=== PATIENT | female | born 1980 | race Caucasian/White ===

== ENCOUNTER 2021-03-28 09:28 | Outpatient (CLI) | payer OTHER ==
[~2021-03-28 09:28] MED LIST: barium sulfate 450ml oral suspension ONE
== END 2021-03-28 23:59 | disposition home or self-care (01) ==
LOC: RAD 09:28
PROVIDERS: ATTEND Family Medicine
DX: R13.10 Dysphagia, unspecified (principal)
CPT/HCPCS: 74220

== ENCOUNTER 2021-08-01 07:30 | Day surgery (SDC) | payer OTHER ==
[~2021-08-01] VITALS: Ht 172.7 cm; Wt 159.1 kg
[2021-08-01 07:45] VITALS: BP 154/79
[2021-08-01] MEDS ORDERED: fentaNYL/PF 50MCG/1 ML 2ML syringe ONE ×3 (07:46→09:35)
[2021-08-01] MEDS ORDERED: MIDAZolam 1 MG/ML 5ML VIAL ONE ×2 (07:46→09:29)
[2021-08-01] MEDS ORDERED: LIDOcaine Viscous 15ml cup ONE (07:46)
[2021-08-01] MEDS ORDERED: CETI-90 PO (08:01)
[2021-08-01] MEDS ORDERED: MULT-1219 PO (08:01)
[2021-08-01] MEDS ORDERED: OMEP20CA15 PO (08:01)
[2021-08-01] MEDS ORDERED: OMEG-79 PO (08:02)
[2021-08-01] MEDS ORDERED: ATOR40TA PO (08:02)
[2021-08-01] MEDS ORDERED: CHOL500049 PO (08:04)
[2021-08-01] MEDS ORDERED: LOP12.5T PO (08:06)
[2021-08-01] MEDS ORDERED: METO25TA6 PO (08:06)
[2021-08-01 09:56] VITALS: BP 139/77
[2021-08-01 10:06] VITALS: BP 138/81
[2021-08-01 10:16] VITALS: BP 130/81
[2021-08-01 10:26] VITALS: BP 132/78
== END 2021-08-01 10:40 | disposition home or self-care (01) ==
LOC: GI LAB 07:30
PROVIDERS: ATTEND Internal Medicine Gastroenterology
DX: K92.1 Melena (principal); K21.00 Gastro-esophageal reflux disease with esophagitis, without bleeding; K29.50 Unspecified chronic gastritis without bleeding; K64.4 Residual hemorrhoidal skin tags; K64.1 Second degree hemorrhoids; K64.0 First degree hemorrhoids
CPT/HCPCS: 43239; 45378; 99152; 99153; J2250; J3010; J7040; Z7512; A4620

== ENCOUNTER → 2022-10-15 | Day surgery (SDC) | payer OTHER ==
[2022-10-11 12:07] LABS: BASOPHILS % (AUTO) 0.3 % (0-1); EOSINOPHILS # (AUTO) 0.3 X10'3 (0-0.9); EOSINOPHILS % (AUTO) 3.7 % (0-6); LYMPHOCYTES % (AUTO) 23.6 % (21-51); MEAN CORPUSCULAR HEMOGLOBIN 29.3 PG (27.0-31.0); MEAN CORPUSCULAR HGB CONC 33.7 g/dL (33.0-36.5); MEAN CORPUSCULAR VOLUME 87.1 FL (78-98); MEAN PLATELET VOLUME 8.1 FL (7.4-10.4); MONOCYTES # (AUTO) 0.5 X10'3 (0-0.9); MONOCYTES % (AUTO) 5.6 % (2-12); NEUTROPHILS # (AUTO) 5.7 X10'3 (1.8-7.7); NEUTROPHILS % (AUTO) 66.8 % (42-75); PRE OP HEMATOCRIT 39.9 % (35.0-45.0); PRE OP HEMOGLOBIN 13.4 g/dL (12.0-16.0); PRE OP PLATELET COUNT 222 X10'3 (140-440); RED BLOOD COUNT 4.58 X10'6 (4.20-5.60); RED CELL DISTRIBUTION WIDTH 14.3 % (11.5-14.5)
[2022-10-11 12:27] LABS: ALBUMIN 3.7 G/DL (3.4-5.0); ALKALINE PHOSPHATASE 100 IU/L (46-116); BLOOD UREA NITROGEN 13 MG/DL (7-18); BUN/CREATININE RATIO 19.1 (6.6-38.0); CALCIUM 8.6 MG/DL (8.5-10.1); CHLORIDE 108 MMOL/L (99-107); CREATININE 0.68 MG/DL (0.40-0.90); PRE OP ALT 31 U/L (30-65); PRE OP ANION GAP 5 (8-16); PRE OP AST 24 U/L (10-37); PRE OP BILIRUB, TOTAL 0.6 MG/DL (0.0-1.0); PRE OP GLUCOSE 115 MG/DL (70-104); PRE OP POTASSIUM 3.4 MMOL/L (3.4-5.1); PRE OP SODIUM 141 MMOL/L (135-145); TOTAL CARBON DIOXIDE 28.1 MMOL/L (24-32); TOTAL PROTEIN 7.5 G/DL (6.4-8.2); eGFR > 90 ML/MIN
[~2022-10-15] VITALS: Ht 172.7 cm; Wt 158.8 kg
[2022-10-15] VITALS (7 sets, daily range): BP systolic 114–153; BP diastolic 63–89
[~2022-10-15] MED LIST changes: +ATOR40TA PO; +BUPIVAcaine/PF 2.5 mg/ml (0.25%) 30ml vial ONE; +CETI-90 PO; +LIDOcaine 0.5% (5mg/ml) 50ml vial ONE; +LIDOcaine 1%/PF 5ML 10 MG/ML VIAL IJ ONE; +LIDOcaine 1%/PF 5ML 10 MG/ML VIAL ONE; +LOP12.5T PO; +OMEP20CA15 PO; +acetaminophen 1,000mg/100ml IV 100 ML IV PRN; -barium sulfate 450ml oral suspension ONE; +bupivacaine (with preservative) 5 mg/ml inj. 50ml IJ ONE; +clindamycin-Cleocin 900mg/D5W 50 ML IV ONE; +famotidine 20mg tablet PO ONE; +fentaNYL/PF 50MCG/1 ML 2ML syringe ONE; +hydrALAZINE 20mg/ml inj. IV PRN; +ketorolac trometh. 30mg/ml inj. IV ONE; +labetalol 20mg/4ml (5mg/ml) syringe IV PRN; +meperidine/PF 25mg/ml syringe IV PRN; +midazolam 1 mg/ML 2ml injection ONE; +morphine 2 MG/ML inj. syringe IV PRN; +morphine 4 MG/ML inj SYRINge IV PRN; +ondansetron/PF 4mg/2ml inj IV PRN; +proCHLORperazine 10 MG/2 ml inj IV PRN; +propofol inj 20 ML IV ONE; +ringers solution, lacted 1,000 ML IV SCH
--- NOTE | 2022-10-15 10:46 | NUR ---
I HAVE REVIEWED D/C INSTRUCTIONS WITH PATIENT AND THEY HAVE VERBALIZED UNDERSTANDING OF INSTRUCTIONS. PATIENT D/C HOME WITH ALL BELONGINGS AND FAMILY GAVE TRANSPORT Addendum: 10/15/22 at 1051 by Kyara Joya RN Amended: Links added.
== END | disposition home or self-care (01) ==
LOC: PAS 06:33
PROVIDERS: ATTEND Orthopaedic Surgery Hand Surgery
DX: G56.01 Carpal tunnel syndrome, right upper limb (principal); K21.9 Gastro-esophageal reflux disease without esophagitis; E66.9 Obesity, unspecified; Z68.43 Body mass index [BMI] 50.0-59.9, adult; G47.30 Sleep apnea, unspecified; M19.90 Unspecified osteoarthritis, unspecified site; F12.91 Cannabis use, unspecified, in remission; Z88.0 Allergy status to penicillin; Z88.1 Allergy status to other antibiotic agents; Z88.2 Allergy status to sulfonamides; Z72.89 Other problems related to lifestyle; Z90.49 Acquired absence of other specified parts of digestive tract; Z90.710 Acquired absence of both cervix and uterus; Z98.890 Other specified postprocedural states; Z79.899 Other long term (current) drug therapy
CPT/HCPCS: 29848; 36415; 80053; 82948; 85025; 93005; J2250; J2704; J3010; J3490; J7030; J7120; Z7506; Z7512; A4215; A6449; A7000

== ENCOUNTER 2022-11-12 05:47 | Day surgery (SDC) | payer OTHER ==
[2022-11-07 11:40] LABS: BASOPHILS % (AUTO) 0.6 % (0-1); EOSINOPHILS # (AUTO) 0.3 X10'3 (0-0.9); EOSINOPHILS % (AUTO) 3.4 % (0-6); LYMPHOCYTES % (AUTO) 22.4 % (21-51); MEAN CORPUSCULAR HEMOGLOBIN 29.7 PG (27.0-31.0); MEAN CORPUSCULAR HGB CONC 34.2 g/dL (33.0-36.5); MEAN CORPUSCULAR VOLUME 86.8 FL (78-98); MEAN PLATELET VOLUME 8.3 FL (7.4-10.4); MONOCYTES # (AUTO) 0.5 X10'3 (0-0.9); MONOCYTES % (AUTO) 5.6 % (2-12); PRE OP HEMATOCRIT 40.4 % (35.0-45.0); PRE OP HEMOGLOBIN 13.8 g/dL (12.0-16.0); PRE OP PLATELET COUNT 221 X10'3 (140-440); RED BLOOD COUNT 4.66 X10'6 (4.20-5.60); RED CELL DISTRIBUTION WIDTH 14.1 % (11.5-14.5)
[2022-11-07 11:51] LABS: ALBUMIN 3.7 G/DL (3.4-5.0); ALBUMIN/GLOBULIN RATIO 0.9 (1.1-1.5); ALKALINE PHOSPHATASE 109 IU/L (46-116); BLOOD UREA NITROGEN 16 MG/DL (7-18); BUN/CREATININE RATIO 21.9 (10.0-20.0); CALCIUM 8.6 MG/DL (8.5-10.1); CHLORIDE 106 MMOL/L (99-107); CREATININE 0.73 MG/DL (0.40-0.90); PRE OP ALT 29 U/L (30-65); PRE OP ANION GAP 7 (8-16); PRE OP AST 19 U/L (10-37); PRE OP BILIRUB, TOTAL 0.6 MG/DL (0.0-1.0); PRE OP GLUCOSE 112 MG/DL (70-104); PRE OP POTASSIUM 3.7 MMOL/L (3.4-5.1); PRE OP SODIUM 141 MMOL/L (135-145); TOTAL CARBON DIOXIDE 28.1 MMOL/L (24-32); TOTAL PROTEIN 7.6 G/DL (6.4-8.2); eGFR 87 ML/MIN
[~2022-11-12] VITALS: Ht 172.7 cm; Wt 158.8 kg
[~2022-11-12 05:47] MED LIST changes: -BUPIVAcaine/PF 2.5 mg/ml (0.25%) 30ml vial ONE; +DOCUMENT DATE & TIME OF BETA-BLOCKER PO ONE; -LIDOcaine 0.5% (5mg/ml) 50ml vial ONE; -LIDOcaine 1%/PF 5ML 10 MG/ML VIAL IJ ONE; -LIDOcaine 1%/PF 5ML 10 MG/ML VIAL ONE; +NAPR220T67 PO; -acetaminophen 1,000mg/100ml IV 100 ML IV PRN; -bupivacaine (with preservative) 5 mg/ml inj. 50ml IJ ONE; -fentaNYL/PF 50MCG/1 ML 2ML syringe ONE; -hydrALAZINE 20mg/ml inj. IV PRN; -ketorolac trometh. 30mg/ml inj. IV ONE; -labetalol 20mg/4ml (5mg/ml) syringe IV PRN; -meperidine/PF 25mg/ml syringe IV PRN; -midazolam 1 mg/ML 2ml injection ONE; -morphine 2 MG/ML inj. syringe IV PRN; -morphine 4 MG/ML inj SYRINge IV PRN; -ondansetron/PF 4mg/2ml inj IV PRN; -proCHLORperazine 10 MG/2 ml inj IV PRN; -propofol inj 20 ML IV ONE
[2022-11-12 06:30] VITALS: BP 113/75
[2022-11-12] MEDS ORDERED: BUPIVAcaine/PF 2.5 mg/ml (0.25%) 30ml vial ONE (06:41)
[2022-11-12] MEDS ORDERED: midazolam 1 mg/ML 2ml injection ONE (07:30)
[2022-11-12] MEDS ORDERED: fentaNYL/PF 50MCG/1 ML 2ML syringe ONE (07:30)
[2022-11-12] MEDS ORDERED: LIDOcaine 0.5% (5mg/ml) 50ml vial ONE (07:42)
[2022-11-12] MEDS ORDERED: propofol inj 20 ML IV ONE (07:42)
[2022-11-12 08:01] VITALS: BP 126/68
--- NOTE | 2022-11-12 08:01 | NUR ---
Received from OR via , accompanied by Anesthesiologist KATERIN AND OR NURSE and report given by Anesthesiolgist. PT IS AWAKE AND ALERT AND DENIES PAIN OR DISCOMFORT. PT TOLERATING ORAL LIQUIDS. VSS. 22G TO RT WRIST Addendum: 11/12/22 at 0902 by Kyara Joya RN Amended: Links added.
[2022-11-12] MEDS ORDERED: morphine 4 MG/ML inj SYRINge IV PRN (08:05)
[2022-11-12] MEDS ORDERED: morphine 2 MG/ML inj. syringe IV PRN (08:05)
[2022-11-12] MEDS ORDERED: ondansetron/PF 4mg/2ml inj IV PRN (08:05)
[2022-11-12] MEDS ORDERED: proCHLORperazine 10 MG/2 ml inj IV PRN (08:05)
[2022-11-12] MEDS ORDERED: meperidine/PF 25mg/ml syringe IV PRN ×3 (08:05)
[2022-11-12] MEDS ORDERED: ringers solution, lacted 1,000 ML IV SCH (08:05)
[2022-11-12 08:10] VITALS: BP 118/81
[2022-11-12 08:20] VITALS: BP 109/72
[2022-11-12 08:30] VITALS: BP 113/75
[2022-11-12 08:40] VITALS: BP 112/77
--- NOTE | 2022-11-12 08:51 | NUR ---
I HAVE REVIEWED D/C INSTRUCTIONS WITH PATIENT AND THEY HAVE VERBALIZED UNDERSTANDING OF INSTRUCTIONS. PATIENT D/C HOME WITH ALL BELONGINGS AND FAMILY GAVE TRANSPORT Addendum: 11/12/22 at 0903 by Kyara Joya RN Amended: Links added.
== END 2022-11-12 08:51 | disposition home or self-care (01) ==
LOC: PAS 05:47
PROVIDERS: ATTEND Orthopaedic Surgery Hand Surgery
DX: G56.02 Carpal tunnel syndrome, left upper limb (principal); M19.90 Unspecified osteoarthritis, unspecified site; K21.9 Gastro-esophageal reflux disease without esophagitis; E66.01 Morbid (severe) obesity due to excess calories; Z90.710 Acquired absence of both cervix and uterus; Z79.899 Other long term (current) drug therapy; Z98.890 Other specified postprocedural states; Z88.0 Allergy status to penicillin; Z88.8 Allergy status to other drugs, medicaments and biological substances; F41.9 Anxiety disorder, unspecified
CPT/HCPCS: 29848; 36415; 80053; 82948; 85025; J2250; J2704; J3010; J3490; J7030; J7120; Z7506; Z7512; A4215; A6449; A7000